=== PATIENT | female | born 1975 | race Caucasian/White ===

== ENCOUNTER 2017-12-01 00:17 | Emergency (ER) | payer MEDICAID ==
--- NOTE | 2017-12-01 01:09 | ER Document Report ---
ED General - General Chief Complaint: Chest Pain Stated Complaint: CHEST PAIN Time Seen by Provider: 12/01/17 01:08 Notes: Patient is a 42-year-old female presents with complaint of headache. She says she has a history of recurrent headaches. Says the headaches usually occur when her blood pressure goes up. Takes hydrochlorothiazide for blood pressure but says it is not worked very well. She is on Tenormin because a history of PVCs. She says whenever she gets stressed her headache plus times her PVCs were increased. That happened tonight and her PVCs are increasing. She says that she is under been a lot of stress recently but her is "mean" and when she start forehead, and on he started calling her a "baby" and to start making her feel more stressed. She said that she had a brief episode of some pain when she had the PVCs. She said the PVCs do hurt when they occur. That pain in her PVCs have since resolved. She still has a headache. She had a headache was gradual in onset. She first noticed it coming on around 1 PM and it gradually worsened throughout the day and became more worse tonight. She says headache is very similar to her previous headaches. They are always gradual in onset. When the headaches get worse she does develop vomiting. She did have some vomiting tonight. No focal weakness or numbness. No recent fevers or infections. No other complaints at this time. Patient's last complaint is that she has a small ata of a door that went into her left eye. She says she can see when she opens her eyelids. She is unable to get it out. No abnormal drainage from the eye. No blurred vision. TRAVEL OUTSIDE OF THE [place] IN LAST 30 DAYS: No - Related Data Allergies/Adverse Reactions: latex Allergy (Verified 08/18/15 15:56) Past Medical History - Social History Smoking Status: Unknown if Ever Smoked Frequency of alcohol use: None Drug Abuse: None Family History: Reviewed & Not Pertinent Patient has suicidal ideation: No Patient has homicidal ideation: No - Past Medical History Cardiac Medical History: Reports: Hx Hypertension Neurological Medical History: Reports: Hx Migraine Renal/ Medical History: Denies: Hx Peritoneal Dialysis Past Surgical History: Reports: Hx Section - x5, Hx Cholecystectomy, Hx Tubal Ligation - Immunizations Hx Diphtheria, Pertussis, Tetanus Vaccination: No Review of Systems - Review of Systems Notes: My Normal Review Basic REVIEW OF SYSTEMS: CONSTITUTIONAL : Denies fever, chills, or sweats. Denies recent illness. EENT: Denies eye, ear, throat, or mouth pain or symptoms. Denies nasal or sinus congestion. CARDIOVASCULAR: Has some chest pain with her PVCs. RESPIRATORY: Denies cough, cold, or chest congestion. Denies shortness of breath, difficulty breathing, or wheezing. GASTROINTESTINAL: Denies abdominal pain. Denies nausea, vomiting, or diarrhea. GENITOURINARY: Denies difficulty urinating, painful urination, burning, frequency, or blood in urine. MUSCULOSKELETAL: Denies neck or back pain or joint pain or swelling. SKIN: Denies rash or skin lesions. NEUROLOGICAL: Denies altered mental status or loss of consciousness. Has a headache. Denies weakness or paralysis or loss of use of either side. Denies problems with gait or speech. Denies sensory or motor loss. ALL OTHER SYSTEMS REVIEWED AND NEGATIVE. Physical Exam - Vital signs Vitals: Temp Pulse Resp BP Pulse Ox 97.9 F 61 24 H 188/97 H 100 12/01/17 00:31 12/01/17 00:31 12/01/17 00:31 12/01/17 00:31 12/01/17 00:31 - Notes Notes: General Appearance: Well nourished, alert, cooperative, no acute distress, mild obvious discomfort. Vitals: reviewed, See vital signs table. Head: no swelling or tenderness to the head Eyes: PERRL, EOMI, Conjuctiva clear. Very small sliver of a paint chip underneath the left upper eyelid that was able to easily remove with a wet Q- tip. No underlying erythema or redness to the conjunctiva. No drainage from the eye. Mouth: No decreasd moisture Throat: No tonsillar inflammation, No airway obstruction, No lymphadenopathy Neck: Supple, no neck tenderness, No thyromegaly Lungs: No wheezing, No rales, No rhonci, No accessory muscle use, good air exchange bilaterally. Heart: Normal rate, Regular rythm, No murmur, no rub Abdomen: Normal BS, soft, No rigidity, No abdominal tenderness, No guarding, no rebound, no abdominal masses, no organomegaly Extremities: strength 5/5 in all extremities, good pulses in all extremities, no swelling or tenderness in the extremities, no edema. Skin: warm, dry, appropriate color, no rash Neuro: speech clear, oriented x 3, normal affect, responds appropriately to questions. Cranial nerves II through XII are intact. Distal sensation intact. Patient moves all extremities without difficulty. Course - Re-evaluation Re-evalutation: 12/01/17 02:44 Patient's nausea is resolved but she still has a headache. We will give her different medication to treat the headache as well as something for blood pressure being that her blood pressure is elevated with a headache. 12/01/17 04:01 Patient's headache is almost completely resolved. She told me that when she used to live here she has been on Xanax that she would take when the headache started this would help relieve it. She says now that she is definitely under a lot of stress recently and says that she was on Ativan when she was in [place] but ran out. I will give her small dose of Ativan to see if this relieves remainder of her headache and see how she reacts to this medication. If it does help her significantly then I will write her a short course of this medication until she can follow-up with her primary care doctor. I do not suspect her headache is related to cranial bleeding or subarachnoid hemorrhage being the headache was very gradual in onset over course of 24 hours, headache similar to previous headaches, and she is undergoing a lot of stress and says that these headaches in the past have also been precipitated by stress. I did remove the small paint chip from the patient's left eye. I will give her erythromycin ointment to apply at home to help prevent any secondary infection. Dictation of this chart was performed using voice recognition software; therefore, there may be some unintended grammatical errors. 12/01/17 06:21 12/01/17 06:37 - Vital Signs Vital signs: Temp Pulse Resp BP Pulse Ox 97.9 F 61 21 H 124/87 H 99 12/01/17 00:31 12/01/17 00:31 12/01/17 05:01 12/01/17 05:01 12/01/17 05:01 - EKG Interpretation by Me Additional EKG results interpreted by me: 12/01/17 01:08 EKG is reviewed and interpreted by me. EKG shows sinus rhythm with rate of [address] segment elevation or depression. No ischemic T wave inversions. ND interval, QRS duration, QTc intervals are within normal range. Old EKG for comparison is from August 18, 2015. Discharge - Discharge Clinical Impression: Chest pain Qualifiers: Chest pain type: unspecified Qualified Code(s): R07.9 - Chest pain, unspecified Headache Qualifiers: Headache type: unspecified Headache chronicity pattern: episodic headache Intractability: not intractable Qualified Code(s): R51 - Headache Hypertension Qualifiers: Hypertension type: unspecified Qualified Code(s): I10 - Essential (primary) hypertension Condition: Good Disposition: HOME, SELF-CARE Additional Instructions: Please continue to take your hydrochlorothiazide for your high blood pressure. I have prescribed you Ativan to help with your stress and anxiety. please [place] [facility] [place]. Please follow back up with Dr. Cortez in regards to your PVCs and chest pain. Please return to the ER if you have worsening headaches, chest pain, difficulty breathing, or feel unwell. Prescriptions: Butalb/Acetaminophen/Caffeine [Fioricet (50-325-40 mg) Tablet] 1 tab PO Q4HP PRN #20 tab PRN Reason: Lorazepam [Ativan 1 mg Tablet] 1 mg PO Q8 PRN #12 tab PRN Reason: Forms: Return to Work Referrals: AYLIN CORTEZ MD [EMERITUS] - 12/05/17
[2017-12-01] MEDS ORDERED: KETOROLAC TROMETHAMINE INJ/PF 30 MG/1 ML SDV IV ONE (01:16)
[2017-12-01] MEDS ORDERED: NORMAL SALINE 500 ML IV ONE (01:16)
[2017-12-01] MEDS ORDERED: PROMETHAZINE HCL INJ 25 MG/1 ML VIAL IM ONE (01:16)
[2017-12-01] MEDS ORDERED: MORPHINE SULFATE 10 MG/ML INJ IV ONE (02:36)
[2017-12-01] MEDS ORDERED: HYDRALAZINE HCL 25 MG TABLET PO ONE (02:36)
[2017-12-01] MEDS ORDERED: LORAZEPAM INJ 2 MG/1 ML VIAL IV ONE (04:00)
[2017-12-01] MEDS ORDERED: ERYTHROMYCIN 0.5% OPH OINTMENT 3.5 GM (ER DISP) OS PRN (04:50)
[2017-12-01] MEDS ORDERED: BUTALB/ACETAMINOPHEN/CAFFEINE 1 TAB EACH PO ONE (04:59)
[2017-12-01 05:14] VITALS: BP 124/87
--- NOTE | 2017-12-01 09:09 | EKG REPORT ---
SEVERITY:- NORMAL ECG - SINUS RHYTHM : Confirmed by: Fran Obregon 01-Dec-2017 09:07:53
== END 2017-12-01 05:29 | disposition home or self-care (01) ==
LOC: ER 00:17
DX: R07.9 Chest pain, unspecified (principal); R51 Headache; I10 Essential (primary) hypertension; Z91.040 Latex allergy status; Z90.49 Acquired absence of other specified parts of digestive tract; Z98.51 Tubal ligation status
CPT/HCPCS: 93005; 99285; 96372; 96361; 96374; 96375; 36415; 84703; 84484; 93010; J3490 ×2; J1885; J2270; J2060; J2550

== ENCOUNTER 2019-07-27 18:26 | Inpatient (IN) | payer MEDICAID ==
--- NOTE | 2019-07-27 18:36 | ER Document Report ---
ED Neuro Symptoms/Deficit - General Chief Complaint: Weakness Stated Complaint: POSSIBLE STROKE Time Seen by Provider: 07/27/19 18:29 TRAVEL OUTSIDE OF THE [place] IN LAST 30 DAYS: No - HPI Patient complains to provider of: Facial Droop, Weakness Onset: Other - 1715 hrs. Exact time of onset: 1715 hrs. Symptoms are: Constant Duration: Continues in ED Quality of pain: No pain Pain Level: Denies Loss of consciousness: No loss of consciousness Was STROKE ALERT Called: Yes Baseline Cognitive: Alert, oriented X 3 Baseline Gait: Walks w/o assistance Alert To: Name/Voice Patient Orientation: Person, Place, Time New weakness: LUE Altered sensation: L facial Impaired speech/swallowing: Difficult Associated symptoms: None Notes: 44-year-old female presents via EMS for evaluation of stroke symptoms. Patient reportedly hypertensive with systolic pressure greater than 200. Patient r eported to EMS sudden onset of symptoms that 1715 hrs. today. Patient is complaining of left-sided facial droop and weakness and left upper extremity weakness. Patient denies headache, chest pain, shortness of breath. Patient complained to EMS of some nausea. Patient denies prior history of similar symptoms. - Related Data Allergies/Adverse Reactions: Fish Containing Products Allergy (Verified 07/28/19 05:48) latex Allergy (Verified 08/18/15 15:56) Past Medical History - General Information source: Patient - Social History Smoking Status: Never Smoker Family History: Reviewed & Not Pertinent - Past Medical History Cardiac Medical History: Reports: Hx Hypertension Neurological Medical History: Reports: Hx Migraine Renal/ Medical History: Denies: Hx Peritoneal Dialysis Past Surgical History: Reports: Hx Section - x5, Hx Cholecystectomy, Hx Tubal Ligation - Immunizations Hx Diphtheria, Pertussis, Tetanus Vaccination: No Review of Systems - Review of Systems Constitutional: No symptoms reported EENT: No symptoms reported Cardiovascular: No symptoms reported Respiratory: No symptoms reported Gastrointestinal: Nausea Genitourinary: No symptoms reported Female Genitourinary: No symptoms reported Musculoskeletal: No symptoms reported Skin: No symptoms reported Hematologic/Lymphatic: No symptoms reported Neurological/Psychological: See HPI -: Yes All other systems reviewed and negative Physical Exam - Notes Notes: CONSTITUTIONAL [Vital signs reviewed, Patient appears comfortable, Alert and oriented X 3, Normal stature.] HEAD [Atraumatic, Normocephalic.] EYES [Eyes are normal to inspection, No discharge from eyes, Extraocular muscles intact, Sclera are normal, Conjunctiva are normal.] ENT [Ears normal to inspection, Nose examination normal, Posterior pharynx normal, Mouth normal to inspection.] NECK [Normal ROM, No jugular venous distention, No meningeal signs, no carotid bruit.] RESPIRATORY CHEST [Chest is nontender, Breath sounds normal, No respiratory distress.] CARDIOVASCULAR [RRR, No murmurs, Normal S1 S2, No rub, No gallop.] ABDOMEN [Abdomen is nontender, No pulsatile masses, No other masses, Bowel sounds normal, No distension, No peritoneal signs, No hernias.] BACK [There is no CVA Tenderness, There is no tenderness to palpation, Normal inspection.] UPPER EXTREMITY [Inspection normal, No cyanosis, No clubbing, No edema, 2+ radial pulses.] LOWER EXTREMITY [Inspection normal, No cyanosis, No clubbing, No edema, No calf tenderness, 2+ femoral pulses.] NEURO [Patient has decreased sensation to palpation of the left side of her face. 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 ] Course - Re-evaluation Re-evalutation: 07/28/19 02:43 Results of ED MSE discussed with patient. Recommendation for admission discussed with patient. Patient agrees to be admitted. All questions were answered prior to consulting admitting provider. - Laboratory Result Diagrams: 07/27/19 18:39 07/27/19 18:39 - Diagnostic Test Radiology reviewed: Reports reviewed - EKG Interpretation by Me Additional EKG results interpreted by me: 07/27/19 18:55 EKG obtained on 07/27/2019 at 1841 hrs. was interpreted by this MD. Findings: Normal sinus rhythm, rate 95, normal axis, P waves preceding QRS complexes, QRS complex appears narrow, there are no obvious patterns of ST segment elevation or depression present to suggest acute myocardial ischemia or infarction. Impression: Normal sinus rhythm with nonspecific ST segments. - Consults DR. DOWNS Time consulted: 02:33 - DR. DOWNS AGREED TO ADMIT PT Reason for consultation: 07/28/19 02:33 LEFT SIDED WEAKNESS, HYPERTENSIVE URGENCY Consulted provider: will see as inpatient Critical Care Note - Critical Care Note Total time excluding time spent on procedures (mins): 120 Comments: HYPERTENSIVE URGENCY, LEFT SIDED WEAKNESS ED [employer]te[employer] Inc/Exc Criteria - Date/Time patient last known well: Date/Time: 07/27/191714 - Date/Time patient arrived in ED: _: 07/27/191845 - Inclusion Criteria: 1: Patient presented to ED within 3 hours of acute ischemic stroke symptom onset? -: Yes 2: Did baseline CT exclude intracranial hemorrhage and/or other risk factors? -: Yes 3: Is the age of the patient 18 years of age or greater? -: Yes : If any of the above questions are answered "NO" then stop, patient is not a candidate for Alteplase, : If all of the above questions are answered "YES" then continue with Exclusion Criteria. - Exclusion Criteria: 1: Is there evidence of intracranial hemorrhage on baseline CT? -: No 2: Is there suspicion of subarachnoid hemorrhage (even if CT negative)? -: No 3: Is there a history of serious head trauma, recent previous stroke or AK within 3 months? -: No 4: Does the patient have a clinical presentation consistent with AK or post-AK pericarditis? -: No 5: Is there history of intracranial hemorrhage? -: No 6: On repeated measurement is Systolic BP greater than 185mmHg or Diastolic BP greater that 110 mmHg and is aggressive treatment needed to reduce blood pressure to these limits (e.g. constant infusion of an anti-hypertensive)? -: Yes 7: Did the patient awake with stroke symptoms? -: No 8: Has the patient had a lumbar puncture or an arterial puncture at a non- compressile site within 7 days? -: No 9: With in the last 14 days did the patient have surgery or major trauma? -: No 10: Is the patient or less than 2 weeks? -: No 11: Was there any active bleeding or acute trauma? -: No 12: Does the patient have intracranial neoplasm, arteriovenous malformation or aneurysm? -: No 13: Does the patient have abnormal glucose (less than 50 or greater than 400mg/dl)? Record glucose in Comment. -: No 14: Patient has rapidly improving symptoms at the time Alteplase is to be Administered. -: Yes 15: Does the patient have any risks for bleeding, including but not limited to: a.: Current use of Coumadin with PT greater than 15 seconds or INR greater than 1.7. b.: Current use of Pradaxa (Dabigatran). c.: Heparin administereed within the past 48 hours and PTT elevated. d.: Platelet count less than 100,000/mm. e.: Major surgery or serious trauma within 14 days. f.: Gastrointestinal or gynecological urinary bleeding within 14 days. g.: Myocardial Infarction (AK) within 3 months. : If the answer to any of the above questions is "YES" then stop, the patient is not a candidate for Alteplase. : If the answer to all of the above questions is "NO" then the patient may be eligible for the Administration of Alteplase. : If the patient is noted to have seizure activity at onset of Stroke symptoms; Consult Neurologist for further evaluation. - The patient is: -: Included and is eligible to receive Alteplase. *Initiate bed placement at higher level of care* --: No Reviewed risks & benefits of thrombolytic therapy: I have reviewed the risks and benefits of thrombolytic therapy with the patient and/or his/her family. -: Excluded and not eligible to receive Alteplase for the above exclusions. -: Excluded and not eligible to receive Alteplase for other reasons (specify in comments): - Diagnosis of TIA: -: Patient presented with transient symptoms that are now resolved and no other neurologic findings are currently present. List symptoms in comments. -: Yes - FACIAL NUMBNESS, APHASIA, EXTREMITY WEAKNESS -: Patient is NOT a candidate for tPA. -: Yes -: ____(put name in comment) has been consulted for admission and continued evaluation of risk factor assessment. ED NIH Stroke Scale - NIH Stroke Scale When completed:: Before Alteplase *: 1. NIH scale should be completed with appropriate accompanying assessment tools. *: 2. The NIH should reflect what the patient is capable of doing and should not be coached by the clinician. 1a. Level of Consciousness: 0=Alert;keenly responsive -: 1=Drowsy -: 2=Obtunded -: 3=Coma/unresponsive or reflex to noxious stimuli. 1a. Responses: 0 1b. Orientation Questions: a. What month is it? -: b. How old are you? -: 0=Answers both questions correctly. -: 1=Answers one question correctly or patient is intubated or has orotracheal trauma. -: 2=Answers neither question correctly. 1b. Responses: 0 1c. Response to commands: a. Open and close eyes? -: b. Line Maintenance and release hand? -: Credit is given despite weakness. Demonstration of task is permitted. Sub stitute command if hands cannot be used. -: 0=Performs both tasks correctly -: 1=Performs one task correctly -: 2=Performs neither task correctly 1c. Responses: 0 2. Gaze: Establish eye contact and instruct patient to "Follow my finger" -: 0=Normal -: 1=Partial gaze palsy. Gaze is abnormal in one or both eyes, but where forced deviation or total gaze paresis is not present. -: 2=Forced deviation or total gaze paresis. 2. Responses: 0 3. Visual Temple: Sees fingers in all four quadrants. -: 0=No visual loss. -: 1=Partial hemianopsia. -: 2=Complete hemianopsia. -: 3=Bilateral hemianopsia (including Cortical blindness) 3. Responses: 0 4. Facial Movement: Instruct patient to: -: a. Show me your teeth -: b. Raise your eyebrows -: c. Close your eyes -: d. Smile -: 0=Normal symmetrical movement -: 1=Minor paralysis (flattened nasolabial fold, asymmetry on smiling). -: 2=Partial paralysis (total or near total paralysis of lower face). -: 3=Complete paralysis of upper and lower face 4. Responses: 0 5. Motor functions (left arm): Alternate sides and extend each arm with palms down (90 degrees if sitting or 45 degrees for supine). -: 0=No drift;limb holds for full 10 seconds. -: 1=Drift; limb holds but drifts down before full 10 seconds, but does not hit bed. -: 2=Some effort against gravity; limb cannot get to or maintain position. -: 3=No effort against gravity; limb falls. -: 4=No movement. -: UN=Amputation, joint fusion, explain in comments. 5. Responses (left arm): 0 5. Motor Functions (right arm): Alternate sides and extend each arm with palms down (90 degrees if sitting or 45 degrees for supine). -: 0=No drift;limb holds for full 10 seconds. -: 1=Drift; limb holds but drifts down before full 10 seconds, but does not hit bed. -: 2=Some effort against gravity; limb cannot get to or maintain position. -: 3=No effort against gravity; limb falls. -: 4=No movement. -: UN=Amputation, joint fusion, explain in comments. 5. Responses (right arm): 0 6. Motor Functions (left leg): With patient lying supine, alternate sides and extend each leg (30 degrees always while supine). -: 0=No drift, leg holds position for full 5 seconds -: 1=Drift; leg falls before full 5 seconds but does not hit bed. -: 2=Some effort against gravity, leg falls to bed but some effort against gravity. -: 3=No effort against gravity, leg falls to bed immediately. -: 4=No movement. -: UN=Amputation, joint fusion; explain in comments. 6. Responses (left leg): 0 6. Motor Functions (right leg): With patient lying supine, alternate sides and extend each leg (30 degrees always while supine). -: 0=No drift, leg holds position for full 5 seconds -: 1=Drift; leg falls before full 5 seconds but does not hit bed. -: 2=Some effort against gravity, leg falls to bed but some effort against gravity. -: 3=No effort against gravity, leg falls to bed immediately. -: 4=No movement. -: UN=Amputation, joint fusion; explain in comments. 6. Responses (right leg): 0 7. Limb Ataxia: With eyes open instruct patient to: -: a. "Touch your finger to your nose". -: b. "Touch your heel to your [place]" -: 0=Absent -: 1=Present in one limb. -: 2=Present in two limbs. -: UN=Amputation or joint fusion; explain in comments. 7. Responses: 0 8. Sensory: Test sensation using pinprick or noxious stimuli. Test as many body parts as possible. -: 0=Normal;no sensory loss -: 1=Mile to moderate sensory loss (patient feels pin prick but is less sharp on affected side). -: 2=Severe or total sensory loss. 8. Responses: 1 9. Best Language: Instruct patient to: -: a. "Describe what you see in this picture." -: b. "Name the items in this picture." -: c. "Read these sentences." -: 0=No aphasia, normal -: 1=Mild to moderate aphasia. -: 2=Severe aphasia -: 3=Mute, global aphasia, no usable speech or auditory comprehension. 9. Responses: 1 10. Articulation, Dysarthia: Instruct patient to: -: "Read these words" or "Repeat these words" -: 0=Normal -: 1=Mild to moderate; patient may slur some words but can be understood without difficulty. -: 2=Severe; patients speech so slurred as to be unintelligible in the absence of dysphasia. -: UN=Intubated or other physical barrier, explain in comments. 10. Responses: 0 11. Extinction or inattention: 0=No abnormality -: 1= Visual, tactile, auditory, spatial, or personal inattention or extinction to bilateral simulation in one or the sensory modalities. -: 2=Profound sky-inattention or sky-inattention to more than one modality; does not recognize own hand. 11. Responses: 0 Total Score: 2 Discharge - Discharge Clinical Impression: TIA (transient ischemic attack), Left-sided weakness Condition: Good Disposition: ADMITTED INPATIENT Admitting Provider: Hill (Hospitalist) Unit Admitted: [facility]
--- NOTE | 2019-07-27 18:46 | RADIOLOGY REPORT (SQ) ---
EXAM DESCRIPTION: CHEST SINGLE VIEW IMAGES COMPLETED DATE/TIME: 07/27/2019 6:38 pm REASON FOR STUDY: stroke-like symptoms COMPARISON: 08/18/2015 EXAM PARAMETERS: NUMBER OF VIEWS: One view. TECHNIQUE: Single frontal radiographic view of the chest acquired. RADIATION DOSE: NA LIMITATIONS: None. FINDINGS: LUNGS AND PLEURA: No opacities, masses or pneumothorax. No pleural effusion. MEDIASTINUM AND HILAR STRUCTURES: No masses. Contour normal. HEART AND VASCULAR STRUCTURES: Heart normal in size. Normal vasculature. BONES: No acute findings. HARDWARE: None in the chest. OTHER: No other significant finding. IMPRESSION: 1. NO ACUTE RADIOGRAPHIC FINDING IN THE CHEST. TECHNICAL DOCUMENTATION: JOB ID: [id number] 2010 [employer]- All Rights Reserved Reading location - IP/workstation name: [email or web address]
[2019-07-27] MEDS ORDERED: METOPROLOL TARTRATE PF/INJ 5 MG/5 ML SDV IV ONE ×2 (18:51→19:31)
[2019-07-27 18:52] LABS: ABSOLUTE BASOPHILS # (AUTO) 0.1 10^3/uL (0.0-0.2); ABSOLUTE EOSINOPHILS # (AUTO) 0.1 10^3/uL (0.0-0.6); ABSOLUTE LYMPHOCYTES (AUTO) 1.7 10^3/uL (0.5-4.7); ABSOLUTE MONOCYTES (AUTO) 0.5 10^3/uL (0.1-1.4); ABSOLUTE NEUT (AUTO) 5.3 10^3/uL (1.7-8.2); BASOPHILS % (AUTO) 0.8 % (0-2); EOSINOPHILS % (AUTO) 1.1 % (0-6); HEMATOCRIT 40.7 % (36.0-47.0); HEMOGLOBIN 14.5 g/dL (12.0-15.5); LYMPHOCYTES % (AUTO) 21.7 % (13-45); MEAN CORPUSCULAR HEMOGLOBIN 31.6 pg (27.0-33.4); MEAN CORPUSCULAR HGB CONC 35.5 g/dL (32.0-36.0); MEAN CORPUSCULAR VOLUME 89 fl (80-97); MONOCYTES % (AUTO) 6.8 % (3-13); PLATELET COUNT 248 10^3/uL (150-450); RED BLOOD COUNT 4.58 10^6/uL (3.72-5.28); RED CELL DISTRIBUTION WIDTH 14.5 % (11.5-14.0); SEGMENTED NEUTROPHILS % (AUTO) 69.6 % (42-78); TOTAL CELLS COUNTED % (AUTO) 100 %; WHITE BLOOD COUNT 7.6 10^3/uL (4.0-10.5)
--- NOTE | 2019-07-27 18:52 | RADIOLOGY REPORT (SQ) ---
EXAM DESCRIPTION: CT HEAD WITHOUT IMAGES COMPLETED DATE/TIME: 07/27/2019 6:39 pm REASON FOR STUDY: stroke-like symptoms COMPARISON: 07/06/2014 TECHNIQUE: Axial images acquired through the brain without intravenous contrast. Images reviewed wi th bone, brain and subdural windows. Additional sagittal and coronal reconstructions were generated. Images stored on PACS. All CT scanners at this facility use dose modulation, iterative reconstruction, and/or weight based d osing when appropriate to reduce radiation dose to as low as reasonably achievable (ALARA). [facility]: Dose Right [facility]: CareDose [facility]: Dose Right [facility]: Teradose 4D [facility]: Smart [employer]ive RADIATION DOSE: CT Rad equipment meets quality standard of care and radiation dose reduction techniq ues were employed. CTDIvol: 53.2 mGy. DLP: 1017 mGy-cm. LIMITATIONS: None. FINDINGS: VENTRICLES: Normal size and contour. The cisterns are patent. CEREBRUM: No masses. No hemorrhage. No midline shift. No evidence for acute infarction. Normal gra y/white matter differentiation. No areas of low density in the white matter. CEREBELLUM: No masses. No hemorrhage. No alteration of density. No evidence for acute infarction. EXTRAAXIAL SPACES: No fluid collections. No masses. ORBITS AND GLOBE: No intra- or extraconal masses. Normal contour of globe without masses. CALVARIUM: No fracture. PARANASAL SINUSES: Homogeneous opacification of the visualized right maxillary sinus which is hypopl astic in appearance, unchanged finding. No fluid. Slight deviation of the nasal septum to the left of the midline. SOFT TISSUES: No mass or hematoma. OTHER: Partially empty sella. IMPRESSION: 1. No significant interval changes since the prior examination dated 07/06/2014. No acut e intracranial abnormality. 2. Additional stable findings as above. EVIDENCE OF ACUTE STROKE: NO. COMMENT: 1. The results of this examination were discussed with emergency department provider on at 18:46 hours. Quality ID # [id number]: Final reports with documentation of one or more dose reduction techniques (e.g., Au tomated exposure control, adjustment of the mA and/or kV according to patient size, use of iterative reconstruction technique) TECHNICAL DOCUMENTATION: JOB ID: [id number] 2010 [employer]- All Rights Reserved Reading location - IP/workstation name: [email or web address]
[2019-07-27 18:54] LABS: PROTHROMBIN TIME 13.2 SEC (11.4-15.4)
[2019-07-27 18:55] LABS: PARTIAL THROMBOPLASTIN TIME 25.2 SEC (23.5-35.8)
[2019-07-27 19:04] LABS: ALBUMIN 5.1 g/dL (3.5-5.0); ALKALINE PHOSPHATASE 74 U/L (38-126); ANION GAP 10 (5-19); ASPARTATE AMINO TRANSFERASE 24 U/L (14-36); BILIRUBIN,TOTAL 1.6 mg/dL (0.2-1.3); BLOOD UREA NITROGEN 9 mg/dL (7-20); CALCIUM 10.2 mg/dL (8.4-10.2); CARBON DIOXIDE 24 mmol/L (22-30); CHLORIDE 103 mmol/L (98-107); CREATINE KINASE 96 U/L (30-135); GLUCOSE 142 mg/dL (75-110); POTASSIUM 4.3 mmol/L (3.6-5.0); TOTAL PROTEIN 7.9 g/dL (6.3-8.2)
[2019-07-27 19:17] LABS: CREATINE KINASE MB 1.03 ng/mL (<4.55)
[2019-07-27 19:24] LABS: TROPONIN I < 0.012 ng/mL
[2019-07-27] MEDS ORDERED: MORPHINE SULFATE 10 MG/ML INJ IV ONE ×2 (19:31→23:06)
[2019-07-27] MEDS ORDERED: ONDANSETRON HCL INJ/PF 4 MG/2 ML SDV IV ONE ×2 (19:48→23:33)
[2019-07-27 20:07] LABS: URINE AMPHETAMINES SCREEN NEGATIVE; URINE BARBITURATES SCREEN NEGATIVE; URINE BENZODIAZEPINES SCREEN NEGATIVE; URINE COCAINE SCREEN NEGATIVE; URINE MARIJUANA (THC) SCREEN NEGATIVE; URINE METHADONE SCREEN NEGATIVE; URINE PHENCYCLIDINE SCREEN NEGATIVE
--- NOTE | 2019-07-27 21:29 | EKG REPORT ---
SEVERITY:- NORMAL ECG - SINUS RHYTHM : Confirmed by: Julio Whitt MD 27-Jul-2019 21:28:42
--- NOTE | 2019-07-27 21:35 | RADIOLOGY REPORT (SQ) ---
EXAM DESCRIPTION: CT HEAD ANGIOGRAPHY WITHOUT THEN WITH IV CONTRAST, CT NECK ANGIOGRAPHY WITHOUT THEN WITH IV CONTRAST COMPLETED DATE/TME: 07/27/2019 19:06 CLINICAL HISTORY: 44 years Female left facial and arm weak COMPARISON: None. TECHNIQUE: Contiguous axial images obtained through the head and neck during the infusion of IV contrast. Reformatted images obtained. 3-D MIP reformatted images obtained. NASCET criteria utilized for the evaluation of any stenotic lesions. This exam was performed according to our department optimization program which includes automated exposure control, adjustment of the mA and/or kv according to patient size and/or use of iterative reconstruction technique. FINDINGS: The aortic arch appears within normal limits. Origins of the subclavian, brachiocephalic and carotid arteries appear patent. The common carotid arteries are patent and symmetric without dissection or narrowing. No plaquing is noted at the bulbs. The cervical internal carotid arteries appear patent and symmetric. Segments of the left vertebral artery are obscured by venous contrast artifact. The right vertebral artery is small in size. The right PICA appears small in size. 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 The basilar artery is patent. 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 No large branch occlusion is noted in the [place]. IMPRESSION: No large branch occlusion noted No evidence of acute carotid or vertebral artery dissection or stenosis Chronic appearing right maxillary sinusitis Absence of findings on CTA does not exclude acute infarct and does not preclude further evaluation with MRI.
[2019-07-27] MEDS ORDERED: NICARDIPINE HCL RTU, ISO-OS 20 MG/200 ML RTUINJ IV PRN (23:02)
[2019-07-27] MEDS ORDERED: ATENOLOL 50 MG TABLET PO ONE (23:18)
[2019-07-27] MEDS ORDERED: LABETALOL HCL INJ 20 MG/4 ML DISP.SYRIN IV ONE (23:19)
[2019-07-28] MEDS ORDERED: HYDRALAZINE HCL INJ/PF 20 MG/1 ML SDV IV ONE ×2 (00:19→00:58)
[2019-07-28] MEDS ORDERED: ALPRAZOLAM 0.5 MG TABLET PO ONE (01:06)
[2019-07-28] MEDS ORDERED: LABETALOL HCL INJ 20 MG/4 ML DISP.SYRIN IV PRN (03:05)
[2019-07-28] MEDS ORDERED: ONDANSETRON HCL INJ/PF 4 MG/2 ML SDV IV PRN (03:05)
[2019-07-28] MEDS ORDERED: MAGNESIUM HYDROXIDE SUSP 30 ML UDCUP PO PRN (03:05)
[2019-07-28] MEDS ORDERED: ACETAMINOPHEN 325 MG TABLET PO PRN (03:05)
[2019-07-28] MEDS ORDERED: DOCUSATE SODIUM 100 MG CAPSULE PO PRN (03:05)
[2019-07-28] MEDS ORDERED: MORPHINE SULFATE 10 MG/ML INJ IV PRN (03:11)
[2019-07-28] MEDS ORDERED: GUAIFENESIN SYRP 200 MG/10 ML UDC PO PRN (03:11)
[2019-07-28] MEDS ORDERED: HYDRALAZINE HCL INJ/PF 20 MG/1 ML SDV IV PRN (03:11)
[2019-07-28] MEDS: HEPARIN SOD (PORCINE) 5,000 UNIT/ML 1 ML VIAL SUBCUT SCH ×3 (05:05→22:33)
[2019-07-28] MEDS: LORAZEPAM INJ 2 MG/1 ML VIAL IV PRN ×2 (05:05→11:28)
--- NOTE | 2019-07-28 05:08 | PDOC H&P ---
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 She admits that at 1715 (approximately 1 hour prior to her arrival at the emergency room) she suddenly developed left facial drooping and weakness of the left face and left upper extremity. Her left-sided weakness was associated with some difficulty with her speech (mild dysarthria and mild expressive aphasia) and accompanied by nausea. She denies other associated or accompanying signs and symptoms. She denies prior similar ep isodes. Her dysarthria and aphasia were noted to be increased by anxiety or anger. She has not identified any additional aggravating or ameliorating factors for her left-sided weakness associated symptoms. In the emergency room she was found to be hypertensive with a initial blood pressure of 213/127. She was treated with intravenous antihypertensive agents and her blood pressure gradually felt to an acceptable level. CT scan of her head as well as a CTA of her head and neck were negative for acute findings. Her symptoms did gradually improve over her emergency room course. She was subsequently admitted to [facility] for the stroke protocol. Past Medical History Cardiac Medical History: Reports: Hypertension Denies: Coronary Artery Disease, Myocardial Infarction, Hyperlipidema Pulmonary Medical History: Reports: Other - Alpha 1 antitrypsin deficiency Denies: Asthma, Chronic Obstructive Pulmonary Disease (COPD) EENT Medical History: Denies: Cataracts, Ears - Hearing aids Neurological Medical History: Reports: Migraine Denies: Seizures Endocrine Medical History: Denies: Diabetes Mellitus Type 1, Diabetes Mellitus Type 2, Hyperthyroidism, Hypothyroidism Renal/ Medical History: Denies: Chronic Kidney Disease, Nephrolithiasis Malignancy Medical History: Reports: None GI Medical History: Denies: Cirrhosis, Hepatitis Musculoskeltal Medical History: Denies: Arthritis, Gout Skin Medical History: Denies: Eczema, Psoriasis Psychiatric Medical History: Reports: Depression, General Anxiety Disorder Denies: Alcohol Dependency, Substance Abuse, Tobacco Dependency Traumatic Medical History: Reports: None Hematology: Denies: Anemia, Bleeding Tendencies Infectious Medical History: Reports: None Past Surgical History Past Surgical History: Reports: Section - x5, Cholecystectomy, Tubal Ligation Social History Information Source: Patient Lives with: Family, Spouse/Significant other Smoking Status: Never Smoker Electronic Cigarette use?: No Frequency of Alcohol Use: None Hx Recreational Drug Use: No Drugs: None Hx Prescription Drug Abuse: No - Advance Directive Resuscitation Status: Full Code Surrogate healthcare decision maker:: Nik Carter Family History Parental Family History Reviewed: Yes Children Family History Reviewed: No Sibling(s) Family History Reviewed.: Yes Medication/Allergy Home Medications: Alprazolam 1 mg PO TID 07/11/15 Atenolol/Chlorthalidone [Atenolol-Chlorthalidone 50-25mg Tablet] 1 tab PO DAILY 07/11/15 Hydrocodone/Acetaminophen [[place] 5-325 Tablet] 1 each PO Q4 PRN #12 tablet 07/11/15 Potassium Chloride 20 meq PO DAILY 07/11/15 Sertraline HCl [Zoloft 50 mg Tablet] 50 mg PO DAILY 07/11/15 Zolpidem Tartrate [Ambien 5 mg Tablet] 5 mg PO DAILY 07/11/15 Butalb/Acetaminophen/Caffeine [Fioricet (50-325-40 mg) Tablet] 1 tab PO Q4HP PRN #20 tab 12/01/17 Lorazepam [Ativan 1 mg Tablet] 1 mg PO Q8 PRN #12 tab 12/01/17 Allergies/Adverse Reactions: latex Allergy (Verified 08/18/15 15:56) Review of Systems Constitutional: ABSENT: chills, fever(s) Eyes: ABSENT: visual disturbances, other - Eye pain Ears: ABSENT: hearing changes, other - Ear pain Nose, Mouth, and Throat: ABSENT: headache(s), sore throat Cardiovascular: ABSENT: chest pain, palpitations Respiratory: ABSENT: cough, dyspnea Gastrointestinal: PRESENT: as per HPI, nausea. ABSENT: abdominal pain, constipation, diarrhea, vomiting Genitourinary: ABSENT: dysuria, hematuria Musculoskeletal: ABSENT: back pain, joint swelling Integumentary: ABSENT: pruritus, rash Neurological: PRESENT: as per HPI, abnormal speech - Mild expressive aphasia, focal weakness - Left face and left upper extremity. ABSENT: confusion, convulsions, memory loss, syncope Psychiatric: ABSENT: anxiety, depression Endocrine: ABSENT: cold intolerance, heat intolerance Hematologic/Lymphatic: ABSENT: easy bleeding, easy bruising Allergic/Immunologic: ABSENT: seasonal rhinorrhea Physical Exam Vital Signs: Temp Pulse Resp BP Pulse Ox 98.2 F 82 16 143/83 H 98 07/27/19 19:23 07/28/19 00:00 07/28/19 02:31 07/28/19 02:31 07/28/19 02:31 Intake & Output 07/26/19 07/27/19 07/28/19 23:59 23:59 23:59 Weight 72.575 kg General appearance: PRESENT: no acute distress, cooperative Head exam: PRESENT: atraumatic, normocephalic Eye exam: PRESENT: conjunctiva pink. ABSENT: conjunctival injection, scleral icterus Ear exam: PRESENT: normal external ear exam. ABSENT: bleeding, drainage Mouth exam: PRESENT: dry mucosa, neck supple Neck exam: ABSENT: thyromegaly, tracheal deviation Respiratory exam: PRESENT: clear to auscultation santosh, symmetrical, unlabored Cardiovascular exam: PRESENT: RRR. ABSENT: clicks, gallop, rubs Pulses: PRESENT: normal radial pulses, normal dorsalis pedis pul Vascular exam: PRESENT: normal capillary refill. ABSENT: pallor GI/Abdominal exam: PRESENT: normal bowel sounds, soft Rectal exam: PRESENT: deferred Extremities exam: ABSENT: joint swelling, pedal edema Musculoskeletal exam: ABSENT: deformity, dislocation Neurological exam: PRESENT: alert, oriented to person, oriented to place, oriented to time, oriented to situation, motor sensory deficit - Mild left facial (central seventh distribution) weakness to visual observation, mild decreased luster repairer strength in the left upper extremity., aphasic - Mild expressive aphasia, other - Mild dysarthria Psychiatric exam: PRESENT: anxious, normal mood Skin exam: PRESENT: dry, intact, warm. ABSENT: jaundice, rash, urticaria Results Laboratory Results: 07/27/19 18:39 07/27/19 18:39 07/27/19 07/27/19 18:39 18:39 WBC 7.6 RBC 4.58 Hgb 14.5 Hct 40.7 MCV 89 MCH 31.6 MCHC 35.5 RDW 14.5 H Plt Count 248 Seg Neutrophils % 69.6 Sodium 137.4 Potassium 4.3 Chloride 103 Carbon Dioxide 24 Anion Gap 10 BUN 9 Creatinine 0.70 Est GFR ( Amer) > 60 Glucose 142 H Calcium 10.2 Total Bilirubin 1.6 H AST 24 Alkaline Phosphatase 74 Total Protein 7.9 Albumin 5.1 H 07/27/19 07/27/19 18:39 18:39 Creatine Kinase 96 CK-MB (CK-2) 1.03 Troponin I < 0.012 Impressions: Chest X-Ray 07/27/19 18:30 IMPRESSION: 1. NO ACUTE RADIOGRAPHIC FINDING IN THE CHEST. Head CT 07/27/19 18:30 IMPRESSION: 1. No significant interval changes since the prior examination dated 07/06/2014. No acute intracranial abnormality. 2. Additional stable findings as above. EVIDENCE OF ACUTE STROKE: NO. Head CTA 07/27/19 19:06 IMPRESSION: No large branch occlusion noted No evidence of acute carotid or vertebral artery dissection or stenosis Chronic appearing right maxillary sinusitis Absence of findings on CTA does not exclude acute infarct and does not preclude further evaluation with MRI. Neck CTA 07/27/19 19:06 IMPRESSION: No large branch occlusion noted No evidence of acute carotid or vertebral artery dissection or stenosis Chronic appearing right maxillary sinusitis Absence of findings on CTA does not exclude acute infarct and does not preclude further evaluation with MRI. Assessment and Plan - Diagnosis (1) Left-sided weakness Is this a current diagnosis for this admission?: Yes (2) Hypertensive crisis Is this a current diagnosis for this admission?: Yes (3) Expressive aphasia Is this a current diagnosis for this admission?: Yes (4) Dysarthria Is this a current diagnosis for this admission?: Yes (5) Nausea without vomiting Is this a current diagnosis for this admission?: Yes (6) Essential hypertension Is this a current diagnosis for this admission?: Yes - Plan Summary Summary: The patient is admitted to the [facility] per the stroke protocol for routine supportive and symptomatic cares. She will be managed under the stroke protocol for appropriate lab work and additional radiographic investigation. Her blood pressure will be controlled with IV hydralazine and labetalol, as well as reinstitution of her home medications. She will be on a cardiac diet. She will use Ativan 1 mg IV every 4 hours as needed for anxiety or restlessness. She will use morphine sulfate 2 to 4 mg IV every 2 hours as needed for pain. Clopidogrel 300 mg p.o. x1 was given stat and this will be followed with 75 mg p.o. daily. - Time Time Spent with patient: 15-24 minutes Medications reviewed and adjusted accordingly: Yes Anticipated discharge: Home - Inpatient Certification Based on my medical assessment, after consideration of the patient's comorbidities, presenting symptoms, or acuity I expect that the services needed warrant INPATIENT care.: Yes I certify that my determination is in accordance with my understanding of Medicare's requirements for reasonable and necessary INPATIENT services [42 CFR 412.3e].: Yes Medical Necessity: Need Close Monitoring Due to Risk of Patient Decompensation, Need For Continuous Telemetry Monitoring, Need for Neurological Checks, Risk of Complication if Not Cared For in Hospital
[2019-07-28] MEDS ORDERED: CLOPIDOGREL BISULFATE 300 MG TABLET PO ONE (05:15)
[2019-07-28 08:51] LABS: CHOLESTEROL 188.36 mg/dL (0-200); TRIGLYCERIDES 71 mg/dL (<150)
[2019-07-28 09:02] LABS: DIRECT LDL 134 mg/dL (<100)
[2019-07-28] MEDS: CLOPIDOGREL BISULFATE 75 MG TABLET PO SCH (10:19)
[2019-07-28] MEDS: FAMOTIDINE 20 MG TABLET PO SCH ×2 (10:19→22:34)
[2019-07-28] MEDS: HYDROCODONE/ACETAMINOPHEN 5-325 MG TABLET PO PRN ×2 (11:28→18:37)
--- NOTE | 2019-07-28 12:44 | RADIOLOGY REPORT (SQ) ---
EXAM DESCRIPTION: MRI HEAD WITHOUT IMAGES COMPLETED DATE/TIME: 07/28/2019 12:11 pm REASON FOR STUDY: acute left sided weakness COMPARISON: CT brain 07/27/2019 CT angio head and neck 07/27/2019 TECHNIQUE: Multiplanar imaging includes non-contrasted T1, T2, FLAIR, and diffusion with ADC map seq uences. Images stored on PACS. LIMITATIONS: None. FINDINGS: ANATOMY: No developmental anomalies. Normal vascular flow voids. Pituitary fossa normal. CSF SPACES: Normal in size and contour. No hemorrhage. CEREBRUM: Sulci and gyri normal in size and contour. Normal white matter signal on FLAIR imaging. No evidence of hemorrhage, mass, or extraaxial fluid collection. POSTERIOR FOSSA: No signal alteration. No hemorrhage. No edema, masses or mass effect. Internal elizabeth tory canals, cerebello-pontine angles, mastoids normal. DIFFUSION IMAGING: Negative for acute or sub-acute infarction. ORBITS: No masses. Globes normal. PARANASAL SINUSES: Opacified small right maxillary sinus from chronic sinusitis OTHER: No other significant finding. IMPRESSION: Unremarkable non contrasted MRI brain EVIDENCE OF ACUTE STROKE: NO. TECHNICAL DOCUMENTATION: JOB ID: [id number] 2010 [employer]- All Rights Reserved Reading location - IP/workstation name: [email or web address]
--- NOTE | 2019-07-28 13:03 | Progress Note ---
Provider Note Provider Note: 07/28/2019 Patient was admitted through the emergency room last night for hypertensive emergency with slurred speech and headache as well as weakness left upper extremity and left face. She admits to me that she has not been taking her blood pressure medicine for the last 3 months due to money issues. She also tel ls me she has been under a lot of stress with her being in shelter for the last 50 some days due to nonsupport. Work-up so far is negative including head CT scan, head CTA and neck CTA. Also recent MRI of the brain shows no evidence of infarct or hemorrhage. Last night patient's blood pressure was running in the 190s over 120s however this changed pretty abruptly around 0200 hrs. when the blood pressure went down to 142/85. His morning blood pressure is stable at 133/78 on multiple checks Patient is also having no neurologic symptoms today of weakness but is having a persistent although less severe headache Labwork all appears to be basically normal Cording to the chart patient's home medicines are supposed to be Tenormin 50 mg a day, Xanax 1 mg 3 times daily, Vibryd 20 mg twice daily for depression, and Ambien either 5 or 10 mg nightly Patient admits to being very anxious and concerned she is having a "stroke". I have tried to reassure patient that the symptoms are probably based on her significant uncontrolled hypertension. Patient has no neurologic deficit at this time
[2019-07-28] MEDS ORDERED: (PENDING PHARMACY ID) (Alprazolam [Alprazolam] 1 MG) PO SCH (14:00)
[2019-07-28] MEDS: ALPRAZOLAM 0.5 MG TABLET PO SCH ×3 (15:33→22:34)
[2019-07-28] MEDS ORDERED: (PENDING PHARMACY ID) (Vilazodone Hcl [Viibryd] 20 MG) PO SCH (18:00)
[2019-07-28] MEDS ORDERED: (PENDING PHARMACY ID) (Zolpidem Tartrate [Zolpidem Tartrate] 10 MG) PO SCH (22:00)
[2019-07-28] MEDS ORDERED: ZOLPIDEM TARTRATE 5 MG TABLET PO SCH (22:00)
[2019-07-29] MEDS: ALPRAZOLAM 0.5 MG TABLET PO SCH (05:29)
[2019-07-29] MEDS: HEPARIN SOD (PORCINE) 5,000 UNIT/ML 1 ML VIAL SUBCUT SCH (05:29)
[2019-07-29 06:14] LABS: HEMATOCRIT 39.2 % (36.0-47.0); HEMOGLOBIN 13.8 g/dL (12.0-15.5); MEAN CORPUSCULAR HEMOGLOBIN 31.4 pg (27.0-33.4); MEAN CORPUSCULAR HGB CONC 35.3 g/dL (32.0-36.0); MEAN CORPUSCULAR VOLUME 89 fl (80-97); PLATELET COUNT 225 10^3/uL (150-450); RED CELL DISTRIBUTION WIDTH 14.5 % (11.5-14.0); WHITE BLOOD COUNT 7.6 10^3/uL (4.0-10.5)
[2019-07-29 06:32] LABS: ANION GAP 9 (5-19); BLOOD UREA NITROGEN 18 mg/dL (7-20); CALCIUM 9.3 mg/dL (8.4-10.2); CARBON DIOXIDE 25 mmol/L (22-30); CHLORIDE 102 mmol/L (98-107); GLUCOSE 103 mg/dL (75-110); POTASSIUM 4.5 mmol/L (3.6-5.0)
[2019-07-29] MEDS: CLOPIDOGREL BISULFATE 75 MG TABLET PO SCH (09:50)
[2019-07-29] MEDS: FAMOTIDINE 20 MG TABLET PO SCH (09:50)
[2019-07-29] MEDS ORDERED: ATENOLOL 50 MG TABLET PO SCH (10:00)
--- NOTE | 2019-07-29 12:54 | PDOC DISCHARGE SUMMARY ---
Impression - Admit/DC Date/PCP Admission Date/Primary Care Provider: 07/28/19 02:52 REGGIE ROJAS PA-C Discharge Date: 07/29/19 - Assessment Summary: The patient is admitted to the [facility] per the stroke protocol for routine sup portive and symptomatic cares. She will be managed under the stroke protocol for appropriate lab work and additional radiographic investigation. Her blood pressure will be controlled with IV hydralazine and labetalol, as well as reinstitution of her home medications. She will be on a cardiac diet. She will use Ativan 1 mg IV every 4 hours as needed for anxiety or restlessness. She will use morphine sulfate 2 to 4 mg IV every 2 hours as needed for pain. Clopidogrel 300 mg p.o. x1 was given stat and this will be followed with 75 mg p.o. daily. 07/29/2019 Patient is being discharged home today and appears to be very stable I have added Cozaar 25 mg a day to her regimen Blood pressures have been much better controlled and this morning 123/75 and 117/76 It may be that when patient takes her medication properly her blood pressures are well controlled and since she has been in the hospital she has been on all of her medications including her antianxiety medicines. She is going to follow-up with her primary care provider and/or [employer] within the next 5 to 7 days We have had some talks concerning the stress that she is undergoing, she is going to try to handle this better Diagnosis hypertensive emergency, patient noncompliance, anxiety, left-sided numbness, expressive dysarthria, nausea All of patient's work-up including CT head scan CTA of the neck and head as well as MRI of the brain have been normal showing no signs of ischemia. I feel like patient symptoms were entirely related to her extremely elevated blood pressures. She is medically stable for discharge and seemed satisfied - Additional Information Resuscitation Status: Full Code Discharge Diet: Cardiac Discharge Activity: Balance Activity w/Rest Referrals: REGGIE ROJAS PA-C [Primary Care Provider] - Follow up as needed (sticker in book) Prescriptions: Losartan Potassium [Cozaar 25 mg Tablet] 25 mg PO DAILY #30 tablet Home Medications: Alprazolam 1 mg PO TID 07/28/19 Atenolol [Tenormin 50 mg Tablet] 50 mg PO DAILY 07/28/19 Vilazodone HCl [Viibryd] 20 mg PO BID 07/28/19 Zolpidem Tartrate 10 mg PO QHS 07/28/19 Acetaminophen [Tylenol 325 mg Tablet] 650 mg PO Q4HP PRN tablet 07/29/19 Docusate Sodium [Colace 100 mg Capsule] 100 mg PO BIDP PRN capsule 07/29/19 Famotidine [Pepcid 20 mg Tablet] 20 mg PO Q12 tablet 07/29/19 Losartan Potassium [Cozaar 25 mg Tablet] 25 mg PO DAILY #30 tablet 07/29/19 Magnesium Hydroxide [Milk of Magnesia 30 ml Udcup] 30 ml PO HSP PRN udc 07/29/19 History of Present Illiness History of Present Illness: FRANCE CARTER is a 44 year old female Physical Exam Vital Signs: Temp Pulse Resp BP Pulse Ox 98.6 F 71 21 H 117/76 99 07/29/19 11:09 07/29/19 11:09 07/29/19 11:09 07/29/19 11:09 07/29/19 11:09 Intake & Output 07/28/19 07/29/19 07/30/19 06:59 06:59 06:59 Intake Total 1250 360 Output Total 900 Balance 350 360 Weight 76.4 kg 79 kg Results Laboratory Results: WBC 7.6 10^3/uL (4.0-10.5) 07/29/19 05:29 RBC 4.40 10^6/uL (3.72-5.28) 07/29/19 05:29 Hgb 13.8 g/dL (12.0-15.5) 07/29/19 05:29 Hct 39.2 % (36.0-47.0) 07/29/19 05:29 MCV 89 fl (80-97) 07/29/19 05:29 MCH 31.4 pg (27.0-33.4) 07/29/19 05:29 MCHC 35.3 g/dL (32.0-36.0) 07/29/19 05:29 RDW 14.5 % (11.5-14.0) H 07/29/19 05:29 Plt Count 225 10^3/uL (150-450) 07/29/19 05:29 Lymph % (Auto) 21.7 % (13-45) 07/27/19 18:39 Reeves % (Auto) 6.8 % (3-13) 07/27/19 18:39 Eos % (Auto) 1.1 % (0-6) 07/27/19 18:39 Baso % (Auto) 0.8 % (0-2) 07/27/19 18:39 Absolute Neuts (auto) 5.3 10^3/uL (1.7-8.2) 07/27/19 18:39 Absolute Lymphs (auto) 1.7 10^3/uL (0.5-4.7) 07/27/19 18:39 Absolute Monos (auto) 0.5 10^3/uL (0.1-1.4) 07/27/19 18:39 Absolute Eos (auto) 0.1 10^3/uL (0.0-0.6) 07/27/19 18:39 Absolute Basos (auto) 0.1 10^3/uL (0.0-0.2) 07/27/19 18:39 Seg Neutrophils % 69.6 % (42-78) 07/27/19 18:39 PT 13.2 SEC (11.4-15.4) 07/27/19 18:39 INR 1.00 07/27/19 18:39 APTT 25.2 SEC (23.5-35.8) 07/27/19 18:39 Sodium 135.9 mmol/L (137-145) L 07/29/19 05:29 Potassium 4.5 mmol/L (3.6-5.0) 07/29/19 05:29 Chloride 102 mmol/L (98-107) 07/29/19 05:29 Carbon Dioxide 25 mmol/L (22-30) 07/29/19 05:29 Anion Gap 9 (5-19) 07/29/19 05:29 BUN 18 mg/dL (7-20) 07/29/19 05:29 Creatinine 0.85 mg/dL (0.52-1.25) 07/29/19 05:29 Est GFR ( Amer) > 60 (>60) 07/29/19 05:29 Est GFR (MDRD) Non-Af > 60 (>60) 07/29/19 05:29 Glucose 103 mg/dL (75-110) 07/29/19 05:29 Calcium 9.3 mg/dL (8.4-10.2) 07/29/19 05:29 Total Bilirubin 1.6 mg/dL (0.2-1.3) H 07/27/19 18:39 Direct Bilirubin 0.0 mg/dL (0.0-0.4) 07/27/19 18:39 Neonat Total Bilirubin Not Reportable 07/27/19 18:39 Neonat Direct Bilirubin Not Reportable 07/27/19 18:39 Neonat Indirect Bili Not Reportable 07/27/19 18:39 AST 24 U/L (14-36) 07/27/19 18:39 ALT 23 U/L (<35) 07/27/19 18:39 Alkaline Phosphatase 74 U/L (38-126) 07/27/19 18:39 Creatine Kinase 96 U/L (30-135) 07/27/19 18:39 CK-MB (CK-2) 1.03 ng/mL (<4.55) 07/27/19 18:39 Troponin I < 0.012 ng/mL 07/27/19 18:39 Total Protein 7.9 g/dL (6.3-8.2) 07/27/19 18:39 Albumin 5.1 g/dL (3.5-5.0) H 07/27/19 18:39 Triglycerides 71 mg/dL (<150) 07/28/19 07:52 Cholesterol 188.36 mg/dL (0-200) 07/28/19 07:52 LDL Cholesterol Direct 134 mg/dL (<100) H 07/28/19 07:52 VLDL Cholesterol 14.0 mg/dL (10-31) 07/28/19 07:52 HDL Cholesterol 48 mg/dL (>40) 07/28/19 07:52 Urine Opiates Screen NEGATIVE 07/27/19 18:55 Urine Methadone Screen NEGATIVE 07/27/19 18:55 Ur Barbiturates Screen NEGATIVE 07/27/19 18:55 Ur Phencyclidine Scrn NEGATIVE 07/27/19 18:55 Ur Amphetamines Screen NEGATIVE 07/27/19 18:55 U Benzodiazepines Scrn NEGATIVE 07/27/19 18:55 Urine Cocaine Screen NEGATIVE 07/27/19 18:55 U Marijuana (THC) Screen NEGATIVE 07/27/19 18:55 Serum Alcohol < 10 mg/dL (NONE DETECTED) 07/27/19 18:39 07/27/19 18:39 CK-MB (CK-2) 1.03 Troponin I < 0.012 Impressions: Chest X-Ray 07/27/19 18:30 IMPRESSION: 1. NO ACUTE RADIOGRAPHIC FINDING IN THE CHEST. Head CT 07/27/19 18:30 IMPRESSION: 1. No significant interval changes since the prior examination dated 07/06/2014. No acute intracranial abnormality. 2. Additional stable findings as above. EVIDENCE OF ACUTE STROKE: NO. Head CTA 07/27/19 19:06 IMPRESSION: No large branch occlusion noted No evidence of acute carotid or vertebral artery dissection or stenosis Chronic appearing right maxillary sinusitis Absence of findings on CTA does not exclude acute infarct and does not preclude further evaluation with MRI. Neck CTA 07/27/19 19:06 IMPRESSION: No large branch occlusion noted No evidence of acute carotid or vertebral artery dissection or stenosis Chronic appearing right maxillary sinusitis Absence of findings on CTA does not exclude acute infarct and does not preclude further evaluation with MRI. Head MRI 07/28/19 00:00 IMPRESSION: Unremarkable non contrasted MRI brain EVIDENCE OF ACUTE STROKE: NO. Stroke Is this a Stroke Patient?: No Acute Heart Failure - Is this a Heart Failure Patient?: No
[2019-07-29 13:16] VITALS: BP 122/82
== END 2019-07-29 14:10 | disposition home or self-care (01) | DRG 305 ==
LOC: ER 18:26 → EH 07-28 02:52 → 3W 07-28 04:15
PROVIDERS: ADMIT Emergency Medicine; ATTEND Physician Assistant
DX: I16.1 Hypertensive emergency (principal); G81.94 Hemiplegia, unspecified affecting left nondominant side; R47.01 Aphasia; R20.0 Anesthesia of skin; R47.1 Dysarthria and anarthria; I10 Essential (primary) hypertension; F32.9 Major depressive disorder, single episode, unspecified; F41.1 Generalized anxiety disorder; E88.01 Alpha-1-antitrypsin deficiency; R29.810 Facial weakness; R47.81 Slurred speech; I16.0 Hypertensive urgency; R29.702 NIHSS score 2; Z91.19 Patient's noncompliance with other medical treatment and regimen; Z79.899 Other long term (current) drug therapy; Z91.040 Latex allergy status; Z91.013 Allergy to seafood
CPT/HCPCS: 36415; 70450; 70496; 70498; 70551; 71045; 80048; 80053; 80061; 80307; 82550; 82553; 84484; 85025; 85027; 85610; 85730; 93005; 93010; 96374; 96375; 96376; 99291; 99292; J0360; J1644; J2060; J2270; J2405; J3490